=== PATIENT | female | born 1990 | race Caucasian/White ===

== ENCOUNTER 2017-07-14 10:03 | Emergency (ER) | payer MEDICAID ==
[~2017-07-14] VITALS: Ht 177.8 cm; Wt 56.7 kg
[2017-07-14 10:03] VITALS: BP 101/53
== END 2017-07-14 11:26 | disposition home or self-care (01) ==
LOC: ER 10:04
DX: O03.9 Complete or unspecified spontaneous abortion without complication (principal)
CPT/HCPCS: 36415; 84702; 99283; A4606; Z7610

== ENCOUNTER 2017-09-19 12:31 | Emergency (ER) | payer SELFPAY ==
[~2017-09-19] VITALS: Ht 175.3 cm; Wt 49.9 kg
[2017-09-19 12:33] VITALS: BP 148/75
[2017-09-19 13:05] LABS: APPEARANCE,URINE Clear (CLEAR); BILIRUBIN,URINE Negative (NEGATIVE); BLOOD, URINE Moderate Ery/uL (NEGATIVE); COLOR,URINE Yellow (YELLOW); KETONES,URINE 40 (NEGATIVE); LEUKOCYTE ESTERASE ,URINE Negative (NEGATIVE); NITRITE, URINE Negative (NEGATIVE); PROTEIN,URINE >=300 mg/dl (NEGATIVE); UGLUCOSE Negative (NEGATIVE); UROBILINOGEN,URINE 0.2 EU/dL (0.2)
[2017-09-19 13:08] LABS: PH,URINE >8.5 (5.0-8.0)
[2017-09-19 13:18] LABS: RBC,URINE 80-100 /HPF (0-2); WBC,URINE 0-3 /HPF (0-3)
[2017-09-19 13:19] LABS: BACTERIA,URINE Rare /HPF (None Seen); MUCUS,URINE Few /LPF (None Seen); SQUAMOUS EPITHELIAL CELL,UR Few /HPF (None Seen)
== END 2017-09-19 13:20 | disposition home or self-care (01) ==
LOC: ER 12:33
DX: F10.10 Alcohol abuse, uncomplicated (principal)
CPT/HCPCS: 81000-TC; 84703-TC; A4606; Z7610